=== PATIENT | female | born 1995 | race Caucasian/White ===

== ENCOUNTER 2018-02-02 16:48 | Emergency (ER) | payer OTHER ==
[~2018-02-02] VITALS: Ht 162.6 cm; Wt 48.0 kg
[2018-02-02] MEDS ORDERED: IBUPROFEN 400MG TABLET PO ONE (23:00)
[2018-02-02 23:26] VITALS: BP 103/78
== END 2018-02-02 23:54 | disposition home or self-care (01) ==
LOC: ER 18:20
DX: S40.029A Contusion of unspecified upper arm, initial encounter (principal); S80.10XA Contusion of unspecified lower leg, initial encounter; Y08.89XA Assault by other specified means, initial encounter
CPT/HCPCS: 81025; 99281